=== PATIENT | male | born 1980 | race Caucasian/White ===

== ENCOUNTER 2016-04-05 19:11 | Emergency (ER) | END 2016-04-05 22:17 | disposition left against medical advice (07) | DX: Z53.21 Procedure and treatment not carried out due to patient leaving prior to being seen by health care provider (principal) ==

== ENCOUNTER 2016-10-23 09:55 | Emergency (ER) | payer MEDICAID, OTHER ==
[~2016-10-23] VITALS: Ht 167.6 cm; Wt 101.5 kg
[2016-10-23 09:59] VITALS: Ht 167.6 cm; Wt 101.5 kg
[2016-10-23] MEDS ORDERED: morphine 2 MG INJ IV STA (10:16)
[2016-10-23] MEDS ORDERED: SOD CHLORIDE 0.9% 1,000 ML IV STA (10:16)
[2016-10-23] MEDS ORDERED: ONDANSETRON 4 MG INJ IV STA (10:16)
--- NOTE | 2016-10-23 10:25 | ERD ---
ER Documentation Chief Complaint Date/Time DATE: 10/23/16 TIME: 10:23 Chief Complaint Complains of abdominal epigastric x 3 days HPI Patient is a 36-year-old male who states he has a palpable bump in his epigastric region that he first noticed on Monday approximately 5 days ago. He before that he does not recall having it and thinks he maybe had a smaller but did not know for sure. He states he has intermittent pain there that is sharp. Currently pain is 8 out of 10 nonradiating. He has had some nausea but no vomiting. Denies any diarrhea. Pain is worse after eating. No fever. ROS All systems reviewed and are negative except as per history of present illness. Allergies Allergies: Coded Allergies: No Known Allergy (Unverified , 10/23/16) PMhx/Soc Medical and Surgical Hx: pt denies Medical Hx, pt denies Surgical Hx Hx Alcohol Use: Yes Hx Substance Use: No Hx Tobacco Use: No Smoking Status: Never smoker FmHx Family History: No diabetes Physical Exam Vitals Vital Signs Date Time Temp Pulse Resp B/P Pulse Ox O2 Delivery O2 Flow Rate FiO2 10/23/16 09:59 98.3 69 20 160/85 99 Physical Exam INITIAL VITAL SIGNS: Reviewed by me GENERAL: Awake, alert and oriented x 4, well appearing, nontoxic, speaking in full sentences. No acute distress HEAD: Atraumatic EYES: EOMI. PERRL. NECK: Supple. No masses. Full range of motion. No meningismus. No midline tenderness. RESPIRATORY: Clear to auscultation bilaterally. Symmetric chest wall rise. No wheezing or rales. No accessory muscle use. CV: Regular rate and rhythm. No murmurs, rubs, or gallops. ABDOMEN: Soft, non-distended. Nontender. Negative Winder. Negative McBurneys point tenderness. No CVA tenderness bilaterally. No guarding. No rebound. Palpable lump nontender in the epigastric region approximately 3 cm in diameter : Deffered. EXTREMITIES: No clubbing or cyanosis. No edema. Moving all extremities normally. Result Diagram: 10/23/16 1020 10/23/16 1020 Results 24 hrs Laboratory Tests Test 10/23/16 10:20 White Blood Count 6.610^3/ul Red Blood Count 4.8910^6/ul Hemoglobin 15.9g/dl Hematocrit 45.3% Mean Corpuscular Volume 92.6fl Mean Corpuscular Hemoglobin 32.5pg Mean Corpuscular Hemoglobin Concent 35.1g/dl Red Cell Distribution Width 12.1% Platelet Count 91179^3/UL Mean Platelet Volume 9.5fl Neutrophils % 63.0% Lymphocytes % 27.3% Monocytes % 5.7% Eosinophils % 3.0% Basophils % 0.5% Nucleated Red Blood Cells % 0.0/100WBC Neutrophils # (Manual) 410^3/ul Lymphocytes # 1.810^3/ul Monocytes # 0.410^3/ul Eosinophils # 0.210^3/ul Basophils # 0.010^3/ul Nucleated Red Blood Cells # 0.010^3/ul Urine Color YELLOW Urine Clarity TURBID Urine pH 8.0 Urine Specific Downs 1.015 Urine Ketones NEGATIVEmg/dL Urine Nitrite NEGATIVEmg/dL Urine Bilirubin NEGATIVEmg/dL Urine Urobilinogen NEGATIVEmg/dL Urine Leukocyte Esterase NEGATIVELeu/ul Urine Microscopic RBC 1/HPF Urine Microscopic WBC 9/HPF Urine Amorphous Crystals FEW/HPF Urine Hemoglobin NEGATIVEmg/dL Urine Glucose NEGATIVEmg/dL Urine Total Protein NEGATIVEmg/dl Sodium Level 141mmol/L Potassium Level 4.0mmol/L Chloride Level 102mmol/L Carbon Dioxide Level 31mmol/L Anion Gap 12 Blood Urea Nitrogen 15mg/dl Creatinine 0.88mg/dl Glucose Level 110mg/dl Calcium Level 9.4mg/dl Total Bilirubin 1.0mg/dl Direct Bilirubin 0.00mg/dl Indirect Bilirubin 1.0mg/dl Aspartate Amino Transf (AST/SGOT) 35IU/L Alanine Aminotransferase (ALT/SGPT) 63IU/L Alkaline Phosphatase 74IU/L Total Protein 7.4g/dl Albumin 4.4g/dl Globulin 3.00g/dl Albumin/Globulin Ratio 1.46 Lipase 88U/L Current Medications Medications (Trade) Dose Ordered Sig/Ghulam Route PRN Reason Start Time Stop Time Status Last Admin Dose Admin Sodium Chloride (NS) 1,000 ml @ 1,000 mls/hr Q1H STAT IV 10/23/16 10:16 10/23/16 11:15 DC 10/23/16 10:32 Morphine Sulfate (morphine) 2 mg ONCE STAT IV 10/23/16 10:16 10/23/16 10:18 DC 10/23/16 10:32 Ondansetron HCl (Zofran Inj) 4 mg ONCE STAT IV 10/23/16 10:16 10/23/16 10:18 DC 10/23/16 10:32 Iohexol 150 ml 150 ml STK-MED ONCE .ROUTE 10/23/16 11:11 10/23/16 11:12 DC Sodium Chloride (NS) 100 ml @ ud STK-MED ONCE .ROUTE 10/23/16 11:11 10/23/16 11:12 DC Procedures/MDM Patient has epigastric pain and a palpable lump in the epigastric region. Patient's blood pressure was elevated (>120/80) but appears stable without evidence of hypertension emergency or urgency. The patient was counseled about the risks of hypertension and urged to pursue outpatient monitoring and therapy within a week with their primary care physician. Otherwise his vital signs are within normal limits and he is well-appearing in no distress. The differential diagnosis includes but is not limited to appendicitis, cholelithiasis, cholecystitis, pancreatitis, hepatitis, gastritis, peptic ulcer disease, bowel obstruction, diverticulitis, renal disease including stones, torsion, AAA, pyelonephritis, and others. He was given IV fluids and Zofran and pain medication and abdominal labs and CT scan with contrast was ordered. Laboratory analysis shows no evidence of acute emergent abnormality. No evidence of significant leukocytosis suggesting systemic infection or severe anemia. No evidence of acute renal or liver failure, no evidence of severe alkalosis or acidosis. CT scan was unremarkable. Patient was given copies of all of his labs and CT reports we can follow with primary care. Patient counseled regarding my diagnostic impression and care plan. Prior to discharge all questions answered. Pt agrees with treatment plan and understands strict return precautions. Pt is instructed to follow up with primary care provider within 24-48 hours. Precautionary instructions provided including instructions to return to the ER if not improving or for any worsening or changing symptoms or concerns. Departure Diagnosis: Primary Impression: Abdominal pain Condition: Stable FAN VELAZQUEZ PA-C Oct 23, 2016 10:25
[2016-10-23 10:36] LABS: BASOPHILS % 0.5 % (0.0-2.0); EOSINOPHILS # 0.2 10^3/ul (0.0-0.5); HEMATOCRIT 45.3 % (42.0-52.0); HEMOGLOBIN 15.9 g/dl (14.0-18.0); LYMPHOCYTES # 1.8 10^3/ul (0.8-2.9); LYMPHOCYTES % 27.3 % (15.0-51.0); MEAN CORPUSCULAR HEMOGLOBIN 32.5 pg (29.0-33.0); MEAN CORPUSCULAR HGB CONC 35.1 g/dl (32.0-37.0); MEAN CORPUSCULAR VOLUME 92.6 fl (82.0-101.0); MEAN PLATELET VOLUME 9.5 fl (7.4-10.4); MONOCYTE # 0.4 10^3/ul (0.3-0.9); MONOCYTES % 5.7 % (0.0-11.0); PLATELET COUNT 215 10^3/UL (140-415); RED BLOOD COUNT 4.89 10^6/ul (4.70-6.10); RED CELL DISTRIBUTION WIDTH 12.1 % (11.5-14.5); WHITE BLOOD COUNT 6.6 10^3/ul (4.8-10.8)
[2016-10-23 11:01] LABS: ALBUMIN 4.4 g/dl (3.3-4.9); ALBUMIN/GLOBULIN RATIO 1.46; CALCIUM 9.4 mg/dl (8.4-10.2); CREATININE 0.88 mg/dl (0.61-1.24); TOTAL PROTEIN 7.4 g/dl (6.1-8.1)
[2016-10-23] MEDS ORDERED: SOD CHLORIDE 0.9% 100 ML ONE (11:11)
[2016-10-23] MEDS ORDERED: IOHEXOL 300MG/ML 150 ML BTL ONE (11:11)
[2016-10-23 11:23] LABS: ADD UMIC YES; UR AMORPHOUS CRYSTAL FEW /HPF (NONE SEEN); UR ASCORBIC ACID NEGATIVE (NEGATIVE); UR BILIRUBIN (Dip) NEGATIVE (NEGATIVE); UR BLOOD (Dip) NEGATIVE (NEGATIVE); UR CLARITY TURBID (CLEAR); UR COLOR YELLOW (YELLOW); UR GLUCOSE (Dip) NEGATIVE (NEGATIVE); UR KETONES (Dip) NEGATIVE (NEGATIVE); UR LEUKOCYTE ESTERASE (Dip) NEGATIVE Leu/ul (NEGATIVE); UR NITRITE (Dip) NEGATIVE (NEGATIVE); UR RBC 1 /HPF (0-5); UR SPECIFIC GRAVITY (Dip) 1.015 (1.003-1.030); UR TOTAL PROTEIN (Dip) NEGATIVE (NEGATIVE); UR UROBILINOGEN (Dip) NEGATIVE (NEGATIVE)
--- NOTE | 2016-10-23 11:52 | RADRPT ---
PROCEDURE: CT Abdomen and Pelvis with contrast. CLINICAL INDICATION: Abdominal pain and nausea. TECHNIQUE: CT scan of the abdomen and pelvis with contrast was performed on a multi-detector high- resolution CT scanner. The patient was scanned following the uncomplicated intravenous administrati on of 90 cc of Omnipaque 300. Coronal and sagittal reformatted images were obtained from the axial source images. One or more of the following dose reduction techniques were used: Automated exposure control, adjustment of the mA and/or kV according to patient size, use of iterative reconstruction technique. Images were reviewed on a high-resolution PACS workstation. The total exam CTDI equals 21.89 mGy and the total exam DLP equals 1351.93 mGy-cm. COMPARISON: None available. FINDINGS: CT abdomen: The lung bases are clear. The heart size is normal, without pericardial thickening or effusion. The liver is normal in size and density without focal mass or intrahepatic biliary dilatation. The spleen is normal in size and homogeneous in density. The stomach is partially collapsed, but is suellen ssly unremarkable. The pancreas as visualized is normal. The gallbladder is unremarkable. The margaret iary tree is unremarkable without evidence for biliary dilatation. The adrenal glands are symmetric and normal. The kidneys are unremarkable. No renal calculus or obstructive uropathy or mass lesio n is seen. The aorta is of normal caliber. There is no retroperitoneal lymphadenopathy. The devin hepatis re gion is clear. The small bowel and mesentery, as visualized, are unremarkable. CT pelvis: The small bowel loops situated within the pelvis are unremarkable. The pelvic organs are normal. T he pelvic sidewalls and inguinal regions are clear. The sigmoid colon and rectum are unremarkable. The appendix is normal. No mass, lymphadenopathy, or free fluid is seen. The bladder is normal. The surrounding osseous structures are unremarkable. No osteolytic or osteoblastic lesion is detect ed. IMPRESSION: No mass, lymphadenopathy, or focal acute inflammatory process is identified. RPTAT: AA .Mukul Velasco MD, Date Time Electronically viewed and signed by .Mukul Velasco MD, MD on 10/23/2016 11:52 .A/
[2016-10-23 12:04] VITALS: BP 146/78; PULSE 78; RESP 20; TEMP 98.2
== END 2016-10-23 12:05 | disposition home or self-care (01) ==
LOC: FTE 09:55
DX: R10.13 Epigastric pain (principal); R11.0 Nausea
CPT/HCPCS: 36415; 74177; 80053; 81001; 83690; 85025; 96361; 96374; 96375; J2270; J2405; J7030; Q9967; Z7502; Z7610

== ENCOUNTER 2017-06-21 10:00 | Emergency (ER) | END 2017-06-21 12:03 | disposition home or self-care (01) ==